=== PATIENT | female | born 1950 | race Caucasian/White ===

== ENCOUNTER → 2018-11-07 | Outpatient (CLI) | payer BC | LOC: FIMAGING 14:37 ==

== ENCOUNTER 2018-11-24 09:47 | Day surgery (SDC) | payer BC ==
[2018-11-24] MEDS ORDERED: DEXAMETHASONE 10 MG/ML VIAL IVP ONE (09:54)
[2018-11-24] MEDS ORDERED: NS 1,000 ML IV ONE (09:54)
[2018-11-24] MEDS ORDERED: MIDAZOLAM 2 MG/2 ML VIAL IVP PRN (09:54)
[2018-11-24] MEDS ORDERED: NALOXONE HCL 0.4 MG/ML INJ IVP PRN (09:54)
[2018-11-24] MEDS ORDERED: ceFAZolin 2 GM/DEXTROSE 100 ML IV ONE (09:54)
[2018-11-24] MEDS ORDERED: FLUMAZENIL 0.5 MG/5 ML MDV IVP PRN (09:54)
[2018-11-24] MEDS ORDERED: PROTAMINE SULFATE 50 MG/5 ML VIAL IVP PRN (09:54)
[2018-11-24] MEDS ORDERED: fentaNYL 100 MCG/2 ML INJ IVP PRN (09:54)
[2018-11-24 11:03] LABS: INR 0.99 (0.83-1.16); PROTIME(PATIENT) 12.7 SEC (12.0-15.0)
[2018-11-24] MEDS ORDERED: LIDOCAINE 1% 300 MG/30 ML SDV ONE (11:18)
[2018-11-24] MEDS ORDERED: BUPIVACAINE 0.25% 30 ML SDV ONE (11:18)
[2018-11-24] MEDS ORDERED: fentaNYL 100 MCG/2 ML INJ ONE ×2 (11:19→13:01)
[2018-11-24] MEDS ORDERED: NALOXONE HCL 0.4 MG/ML INJ ONE (11:19)
[2018-11-24] MEDS ORDERED: FLUMAZENIL 0.5 MG/5 ML MDV IVP ONE (11:19)
[2018-11-24] MEDS ORDERED: MIDAZOLAM 2 MG/2 ML VIAL ONE ×2 (11:19→13:00)
--- NOTE | 2018-11-24 13:32 | PDRADPRE ---
Radiology History & Physical Indication for procedure: pain (Bilateral sacral insufficiency fractures: Plan for sacroplasty) Home medications: Alendronate Sodium 70 mg PO DAILY 11/21/18 [Last Taken Unknown] Eliquis 5 mg PO BID 11/21/18 [Last Taken 11/20/18] Gabapentin 300 mg PO DAILY 11/21/18 [Last Taken Unknown] Hydrocodone-Acetamin 5-325 mg 5 mg PO DAILY 11/21/18 [Last Taken Unknown] Lovenox 0.9 ml SQ DAILY 11/21/18 [Last Taken 11/21/18] Prednisone 12.5 mg PO DAILY 11/21/18 [Last Taken Unknown] Sertraline HCl 100 mg PO DAILY 11/21/18 [Last Taken Unknown] Tizanidine HCl 1 mg PO DAILY 11/21/18 [Last Taken Unknown] Allergies/Adverse Reactions: papaya Allergy (Verified 11/21/18 14:42) Mental status: A&Ox3 Heart exam: regular rate and rhythm Lungs exam: clear to auscultation Mallampati Score: Class 2
--- NOTE | 2018-11-24 13:32 | PDPROPOC ---
Sedation Plan of Care Sedation Plan of Care: vital signs stable, mental status noted, patient educated of risks, benefits, alternatives, patient can tolerate sedation ASA Classification: ASA 2 Planned drugs: fentanyl, midazolam Mallampati Score: Class 2 Mallampati Reference Image: Patient passed 3-3-2 rule?: Yes
[2018-11-24] MEDS ORDERED: ONDANSETRON DISINTEGRATING 4 MG TAB PO PRN (13:33)
[2018-11-24] MEDS ORDERED: ONDANSETRON 4 MG/2 ML VIAL IVP PRN (13:33)
--- NOTE | 2018-11-24 13:33 | PDRADPN ---
Radiology Procedure Note Date of Procedure: 11/24/18 Radiologist: Dion Silvestre Anesthesia: IV Sedation Pre-op Diagnosis: Bilateral sacral insufficiency fractures: Post-op Diagnosis: Bilateral sacral insufficiency fractures: Indication: Bilateral sacral insufficiency fractures: Procedure: Sacroplasty Finding(s): Successful bilateral sacroplasty without complication. Inf/Abcess present in the surg proc area at time of surgery?: No
[2018-11-24 16:00] VITALS: BP 110/71
== END 2018-11-24 16:10 | disposition home or self-care (01) ==
LOC: FIMAGING 09:47
PROVIDERS: ATTEND Neurological Surgery
PROC: 0QU13JZ Supplement Sacrum with Synthetic Substitute, Percutaneous Approach (ICD-10-PCS; principal; 2018-11-24 13:45)
DX: M84.48XA Pathological fracture, other site, initial encounter for fracture (principal)
CPT/HCPCS: J0690; J1100; J2250; J2310; J3010